=== PATIENT | male | born 1960 | race Caucasian/White ===

== ENCOUNTER 2022-09-20 15:02 | Emergency (ER) | payer BC ==
[2022-09-20] MEDS ORDERED: Lidocaine 1% PF 5 ML VIAL ONE (16:19)
== END 2022-09-20 16:54 | disposition home or self-care (01) ==
LOC: ERS 15:02
DX: S63.124A Dislocation of interphalangeal joint of right thumb, initial encounter (principal); Y93.61 Activity, american tackle football

== ENCOUNTER 2023-01-29 20:02 | Emergency (ER) | payer BC ==
[2023-01-29] MEDS ORDERED: Lidocaine 1% PF 5 ML VIAL ONE (21:08)
== END 2023-01-29 22:01 | disposition home or self-care (01) ==
LOC: ERS 20:02
DX: S63.287A Dislocation of proximal interphalangeal joint of left little finger, initial encounter (principal); S62.637A Displaced fracture of distal phalanx of left little finger, initial encounter for closed fracture; W21.00XA Struck by hit or thrown ball, unspecified type, initial encounter; Y93.61 Activity, american tackle football
CPT/HCPCS: 26770

== ENCOUNTER 2023-05-23 20:17 | Emergency (ER) | payer BC | END 2023-05-23 21:25 | disposition home or self-care (01) | LOC: ERS 20:17 | DX: S92.352A Displaced fracture of fifth metatarsal bone, left foot, initial encounter for closed fracture (principal); X50.9XXA Other and unspecified overexertion or strenuous movements or postures, initial encounter ==

== ENCOUNTER 2023-06-04 12:32 | Outpatient (CLI) | payer BC | END 2023-06-04 12:33 | disposition home or self-care (01) | LOC: BICRAD 12:32 | PROVIDERS: ATTEND Pediatrics | DX: M25.572 Pain in left ankle and joints of left foot (principal) ==